=== PATIENT | male | born 1950 | race Hispanic/Latino ===

== ENCOUNTER 2019-09-27 10:16 | Outpatient (CLI) | payer OTHER | END 2019-09-27 19:28 | disposition home or self-care (01) | LOC: RAD 10:16 | DX: T17.890A Other foreign object in other parts of respiratory tract causing asphyxiation, initial encounter (principal) ==

== ENCOUNTER 2021-01-07 13:36 | Emergency (ER) | payer OTHER ==
[~2021-01-07] VITALS: Ht 185.4 cm; Wt 83.5 kg
[2021-01-07 13:43] VITALS: TEMP 98
[2021-01-07 16:12] LABS: PLATELET COUNT 211 K/uL (142-355)
[2021-01-07 16:21] LABS: POTASSIUM 5.8 mmol/L (3.6-5.2)
[2021-01-07 18:23] VITALS: BP 148/82
== END 2021-01-07 18:23 | disposition home or self-care (01) ==
LOC: ED 13:36
PROVIDERS: Family Medicine
DX: M54.5 Low back pain (principal); R31.9 Hematuria, unspecified
CPT/HCPCS: 80053; 81000; 85027; 96372; 99283; J1885

== ENCOUNTER 2021-03-09 16:09 | Emergency (ER) | payer OTHER ==
[~2021-03-09] VITALS: Ht 185.4 cm; Wt 83.5 kg
[2021-03-09 16:09] VITALS: TEMP 98
[2021-03-09 17:12] LABS: PLATELET COUNT 275 K/uL (142-355)
[2021-03-09 17:27] LABS: SODIUM 139 mmol/L (136-145)
[2021-03-09 17:30] LABS: POTASSIUM 6.4 mmol/L (3.6-5.2)
[2021-03-09 17:31] LABS: PARTIAL THROMBOPLASTIN TIME 29.9 SECONDS (24.5-33.6)
[2021-03-09 19:00] VITALS: BP 115/53
== END 2021-03-09 19:20 | disposition short-term general hospital (02) ==
LOC: ED 16:13
PROVIDERS: Hospitalist
DX: N17.8 Other acute kidney failure (principal); E86.0 Dehydration; E11.649 Type 2 diabetes mellitus with hypoglycemia without coma; E87.5 Hyperkalemia; Z11.52 Encounter for screening for COVID-19
CPT/HCPCS: 80053; 80320; 81000; 82150; 82550; 82948; 83690; 83880; 84484; 85027; 85610; 85730; 87635; 93005; 96360; 96361; 96375; 99284; J2405; J3490; J7060; U0003